=== PATIENT | male | born 1985 | race Caucasian/White ===

== ENCOUNTER 2016-09-17 15:00 | Emergency (ER) | payer MEDICAID, OTHER ==
[2016-09-17 15:46] VITALS: TEMP 98.1
--- NOTE | 2016-09-17 17:45 | C.PDOC ---
History Of Present Illness 30 y/o male presents to the ED complaining of intermittent epigastric and periumbilical abdominal pain "for months." He also reports decreased appetite and "vomiting sometimes." Patient notes that his symptoms are worse after he eats "greasey stuff" or "sweets." He also notes that he recently changed his appetite and he has not been eating as much [employer] takeout or meat which seems to have helped. Patient reports no pain at this time in the emergency department. He denies recent travel, fever, diarrhea, chest pain, shortness of breath, urinary symptoms, hematemesis, or any other complaints. Time Seen by Provider: 09/17/16 17:10 Chief Complaint (Nursing): GI Problem History Per: Patient History/Exam Limitations: no limitations Onset/Duration Of Symptoms: Days, Intermittent Episodes Current Symptoms Are (Timing): Still Present Location Of Pain/Discomfort: Epigastric, Periumbilical Radiation Of Pain To:: None Associated Symptoms: Vomiting Recent travel outside of the [place]: No Past Medical History Reviewed: Historical Data, Nursing Documentation, Vital Signs Vital Signs: Last Vital Signs Temp 98.1 F 09/17/16 15:45 Pulse 77 09/17/16 19:11 Resp 18 09/17/16 19:11 BP 118/80 09/17/16 19:11 Pulse Ox 98 09/17/16 19:11 - Medical History PMH: No Chronic Diseases Surgical History: No Surg Hx Family History: States: No Known Family Hx - Social History Hx Tobacco Use: No Hx Alcohol Use: No Hx Substance Use: No - Immunization History Hx Tetanus Toxoid Vaccination: No Hx Influenza Vaccination: No Hx Pneumococcal Vaccination: No Review Of Systems Except As Marked, All Systems Reviewed And Found Negative. Constitutional: Negative for: Fever Cardiovascular: Negative for: Chest Pain Respiratory: Negative for: Shortness of Breath Gastrointestinal: Positive for: Vomiting, Abdominal Pain. Negative for: Diarrhea, Hematemesis Genitourinary: Negative for: Dysuria, Hematuria Physical Exam - Physical Exam Appears: Non-toxic, No Acute Distress Skin: Normal Color, Warm, Dry Head: Atraumatic, Normacephalic Eye(s): bilateral: Normal Inspection, PERRL, EOMI Oral Mucosa: Moist Neck: Normal ROM Chest: Symmetrical Cardiovascular: Rhythm Regular, No Friction Rub, No Murmur Respiratory: Normal Breath Sounds, No Rales, No Rhonchi, No Wheezing Gastrointestinal/Abdominal: Normal Exam, Soft, No Tenderness, No Guarding, No Rebound, No Hernia Back: Normal Inspection, No CVA Tenderness Extremity: Normal ROM, No Swelling Neurological/Psych: Oriented x3, Normal Speech, Normal Cognition, Normal Motor, Normal Sensation Gait: Steady ED Course And Treatment - Laboratory Results Result Diagrams: 09/17/16 18:08 09/17/16 18:08 O2 Sat by Pulse Oximetry: 100 (ra) Pulse Ox Interpretation: Normal Medical Decision Making Medical Decision Making: Plan: * Blood Work * Urinalysis * X-Ray, Abdomen On re-exam, the patient has no pain. Abdomen is soft, non-tender and patient is tolerating PO well. Lungs are CTA, heart is RRR Follow up with the medical doctor within 1-2 days. Return if worsened. Disposition - Disposition Referrals: [facility] at [facility] [Outside] Disposition: HOME/ ROUTINE Disposition Time: 18:59 Condition: GOOD Additional Instructions: Follow up with the medical doctor within 1-2 days. Return if worsened. Prescriptions: Famotidine [Pepcid] 20 mg PO BID #20 tab Ondansetron ODT [Zofran ODT] 1 odt PO BID PRN #10 odt PRN Reason: Nausea/Vomiting Instructions: Acute Abdominal Pain (DC) - Clinical Impression Clinical Impression: Abdominal pain - PA / [employer] / Resident Statement MD/DO has reviewed & agrees with the documentation as recorded. - Scribe Statement The provider has reviewed the documentation as recorded by the Scribe (Moira Novoa) All medical record entries made by the Scribe were at my direction and personally dictated by me. I have reviewed the chart and agree that the record accurately reflects my personal performance of the history, physical exam, medical decision making, and the department course for this patient. I have also personally directed, reviewed, and agree with the discharge instructions and disposition.
[2016-09-17 18:26] LABS: CHLORIDE 94 mmol/L (98-107); POTASSIUM 3.5 mmol/L (3.6-5.2); SODIUM 138 mmol/L (132-148)
[2016-09-17 18:28] LABS: ALB/GLOB RATIO 1.4 (1.0-2.1); AST/SGOT 189 U/L (17-59); BILIRUBIN,TOTAL 1.2 mg/dL (0.2-1.3); CARBON DIOXIDE 30 mmol/L (22-30); GFR AFRICAN-AMERICAN > 60; TOTAL PROTEIN 7.3 g/dL (6.3-8.3)
[2016-09-17 18:29] LABS: ALKALINE PHOSPHATASE 178 U/L (38-126); ALT/SGPT 234 U/L (21-72); BLOOD UREA NITROGEN 9 mg/dL (9-20); CALCIUM 7.1 mg/dl (8.6-10.4); GLUCOSE,RANDOM 111 mg/dL (75-110)
[2016-09-17 18:31] LABS: RBC URINE 6 /hpf (0-3); URINE BACTERIA RARE (<OCC); URINE BILIRUBIN NEGATIVE (NEGATIVE); URINE BLOOD 1+ (NEGATIVE); URINE COLOR Straw (YELLOW); URINE GLUCOSE (UA) 1+ mg/dL (Normal); URINE KETONE NEGATIVE (NEGATIVE); URINE LEUKOCYTE ESTERASE NEG Leu/uL (Negative); URINE PROTEIN NEGATIVE (NEGATIVE); URINE UROBILINOGEN NORMAL mg/dL (0.2-1.0); WBC URINE 1 /hpf (0-5)
[2016-09-17 18:35] LABS: BASO # 0.1 K/uL (0.0-0.2); BASO % 0.8 % (0.0-2.0); EOS # 0.1 K/uL (0.0-0.7); EOS % 0.8 % (0.0-4.0); HEMATOCRIT 34.5 % (35.0-51.0); LYMPH # 1.2 K/uL (1.0-4.3); LYMPH % 15.6 % (20.0-40.0); MEAN CELL VOLUME 81.3 fL (80.0-94.0); MEAN CORPUSCULAR HEMOGLOBIN 26.6 pg (27.0-31.0); MEAN CORPUSCULAR HGB CONC 32.7 g/dL (33.0-37.0); MONO # 1.1 K/uL (0.0-0.8); MONO % 13.9 % (0.0-10.0); NRBC % 0.4 % (0.0-2.0); RED CELL DISTRIBUTION WIDTH 16.2 % (11.5-14.5)
[2016-09-17 19:12] VITALS: BP 118/80; PULSE 77; RESP 18
--- NOTE | 2016-09-18 11:41 | RAD ---
PROCEDURE: Radiographs of the chest and abdomen (obstructive series) HISTORY: abd pain COMPARISON: Chest x-ray performed 08/17/15 TECHNIQUE: AP radiograph of the chest, with upright and supine radiographs of the abdomen. FINDINGS: CHEST: The cardiomediastinal silhouette appears within normal limits of size. Interval resolution of right lower lobe opacity. No focal consolidation, significant pleural effusion, or definite pneumothorax identified.Please note that chest x-ray has limited sensitivity for the detection of pulmonary masses. ABDOMEN AND PELVIS: Nonobstructive bowel gas pattern. No definite free air. Moderate constipation. No acute osseous abnormality is detected. IMPRESSION: Interval resolution of right lower lobe opacity. Moderate constipation.
[2016-09-21 08:46] VITALS: O2SAT 100
== END 2016-09-17 19:12 | disposition home or self-care (01) ==
LOC: C.ER 15:00
DX: R10.13 Epigastric pain (principal); R10.33 Periumbilical pain

== ENCOUNTER 2016-09-22 11:00 | Emergency (ER) | payer OTHER ==
[2016-09-22] MEDS ORDERED: Sodium Chloride 0.9% 1,000 ML IV ONE (11:23)
--- NOTE | 2016-09-22 11:29 | C.PDOC ---
History Of Present Illness Patient is a 30 year old male who presents to the ER with a complaint of lower abdominal pain associated with vomiting and chills. Patient was seen on the for similar symptoms and returns to the ER due to worsening of symptoms. Patient believes he has a "parasite", reports seeing white "segments" in his stool along with blood. Denies fever and dysuria. Time Seen by Provider: 09/22/16 11:09 Chief Complaint (Nursing): Abdominal Pain History Per: Patient History/Exam Limitations: no limitations Onset/Duration Of Symptoms: Days Current Symptoms Are (Timing): Still Present Location Of Pain/Discomfort: Other (Lower abdominal) Associated Symptoms: Chills, Vomiting, Other (Blood and white segments in stool) . denies: Fever, Urinary Symptoms Past Medical History Reviewed: Historical Data, Nursing Documentation, Vital Signs Vital Signs: Last Vital Signs Temp 98.4 F 09/22/16 15:41 Pulse 83 09/22/16 15:41 Resp 20 09/22/16 15:41 BP 132/82 09/22/16 15:41 Pulse Ox 100 09/22/16 15:41 - Medical History PMH: No Chronic Diseases Surgical History: No Surg Hx Family History: States: Unknown Family Hx - Social History Hx Tobacco Use: No Hx Alcohol Use: No Hx Substance Use: No - Immunization History Hx Tetanus Toxoid Vaccination: No Hx Influenza Vaccination: No Hx Pneumococcal Vaccination: No Review Of Systems Constitutional: Positive for: Chills. Negative for: Fever Gastrointestinal: Positive for: Vomiting, Abdominal Pain, Other (Blood and white segments in stool) Genitourinary: Negative for: Dysuria Physical Exam - Physical Exam Appears: Non-toxic Skin: Warm, Dry, No Pale, No Rash Head: Atraumatic, Normacephalic Eye(s): bilateral: Normal Inspection, PERRL, EOMI Oral Mucosa: Moist Throat: No Erythema, No Exudate Neck: Normal ROM, Supple Chest: Symmetrical, No Tenderness Cardiovascular: Rhythm Regular, No Friction Rub, No Murmur Respiratory: Normal Breath Sounds, No Rales, No Rhonchi, No Wheezing Gastrointestinal/Abdominal: Bowel Sounds (active), Soft, No Tenderness Extremity: Normal ROM, No Swelling Neurological/Psych: Oriented x3, Normal Speech, Normal Cognition, Normal Motor, Normal Sensation Gait: Steady ED Course And Treatment - Laboratory Results Result Diagrams: 09/22/16 11:51 09/22/16 11:51 O2 Sat by Pulse Oximetry: 100 (Room air) Pulse Ox Interpretation: Normal Progress Note: Blood work, urinalysis, and CT of the abd/pelvis with IV contrast ordered. Morphine IVP, IV fluids, toradol IVP, and zofran IVP administered. Medical Decision Making Medical Decision Making: Patient was seen on the for similar symptoms, lab results were negative and abdomen was non tender at the time. Will work up today due to persistent pain. Patient was instructed to give a stool sample but was unable to have a bowel movement here. On re-exam, the patient reports improvement of symptoms. Lungs are CTA, heart is RRR, Abdomen is soft, non-tender and tolerating PO well. ambulatory in the ED with steady gait. Follow up with the medical doctor within 1-2 days. return if worsened. Disposition - Disposition Referrals: [facility] at [facility] [Outside] Disposition: HOME/ ROUTINE Disposition Time: 15:06 Condition: GOOD Additional Instructions: Follow up with the medical doctor within 1-2 days. return if worsened. Prescriptions: Ciprofloxacin [Cipro] 1 tab PO BID #14 tab metroNIDAZOLE [Flagyl] 500 mg PO BID #14 tab Polyethylene Glycol 3350 [Miralax] 17 gm PO TID #200 ml Ibuprofen [Motrin] 600 mg PO TID #21 tab Instructions: Colitis (ED) - Clinical Impression Clinical Impression: Abdominal pain, Colitis - Scribe Statement The provider has reviewed the documentation as recorded by the Scribeagle Velasquez All medical record entries made by the Scribe were at my direction and personally dictated by me. I have reviewed the chart and agree that the record accurately reflects my personal performance of the history, physical exam, medical decision making, and the department course for this patient. I have also personally directed, reviewed, and agree with the discharge instructions and disposition.
[2016-09-22] MEDS ORDERED: Sodium Chloride 0.9% 1,000 ML ONE (11:53)
[2016-09-22 11:56] LABS: BASO % 0.6 % (0.0-2.0); EOS % 0.1 % (0.0-4.0); HEMATOCRIT 32.7 % (35.0-51.0); LYMPH # 0.8 K/uL (1.0-4.3); LYMPH % 12.7 % (20.0-40.0); MEAN CORPUSCULAR HEMOGLOBIN 26.4 pg (27.0-31.0); MEAN CORPUSCULAR HGB CONC 32.2 g/dL (33.0-37.0); MEAN PLATELET VOLUME 8.2 fL (7.2-11.7); MONO # 0.6 K/uL (0.0-0.8); MONO % 9.1 % (0.0-10.0); NRBC % 0.3 % (0.0-2.0); RED CELL DISTRIBUTION WIDTH 16.1 % (11.5-14.5); WHITE BLOOD COUNT 6.5 K/uL (4.8-10.8)
[2016-09-22 12:02] LABS: CHLORIDE 93 mmol/L (98-107); POTASSIUM 3.9 mmol/L (3.6-5.2); SODIUM 133 mmol/L (132-148)
[2016-09-22 12:04] LABS: ALB/GLOB RATIO 1.4 (1.0-2.1); AST/SGOT 135 U/L (17-59); BILIRUBIN,TOTAL 1.9 mg/dL (0.2-1.3); CARBON DIOXIDE 28 mmol/L (22-30); GFR AFRICAN-AMERICAN > 60; TOTAL PROTEIN 7.1 g/dL (6.3-8.3)
[2016-09-22 12:05] LABS: ALKALINE PHOSPHATASE 149 U/L (38-126); ALT/SGPT 157 U/L (21-72); BLOOD UREA NITROGEN 4 mg/dL (9-20); CALCIUM 6.6 mg/dl (8.6-10.4); GLUCOSE,RANDOM 99 mg/dL (75-110); URINE BILIRUBIN NEGATIVE (NEGATIVE); URINE BLOOD 1+ (NEGATIVE); URINE COLOR Yellow (YELLOW); URINE GLUCOSE (UA) NORMAL (Normal); URINE KETONE NEGATIVE (NEGATIVE); URINE LEUKOCYTE ESTERASE NEG Leu/uL (Negative); URINE PROTEIN NEGATIVE (NEGATIVE); URINE UROBILINOGEN NORMAL mg/dL (0.2-1.0); WBC URINE 2 /hpf (0-5)
[2016-09-22 12:41] LABS: RBC URINE 3 /hpf (0-3)
[2016-09-22] MEDS ORDERED: Iodixanol 320 MG/ML 100 ML BOTTLE IV ONE (13:10)
--- NOTE | 2016-09-22 14:19 | CT ---
PROCEDURE: CT Abdomen and Pelvis . HISTORY: LLQ abd pain COMPARISON: None. TECHNIQUE: Contiguous axial images of the abdomen and following intravenous injection of approximately 100 cc Visipaque 320 contrast material. . Coronal and Sagittal reformats generated. Radiation dose: Total exam DLP = 263.77 mGy-cm. This CT exam was performed using one or more of the following dose reduction techniques: Automated exposure control, adjustment of the mA and/or kV according to patient size, and/or use of iterative reconstruction technique. FINDINGS: LOWER THORAX: Unremarkable. LIVER: Liver is upper limits of normal/ borderline enlarged measuring nearly 19 cm in CC dimension. Mild diffuse fatty hepatic infiltration. GALLBLADDER AND BILE DUCTS: Unremarkable. PANCREAS: Unremarkable. No mass. No ductal dilatation. SPLEEN: Unremarkable. No splenomegaly. ADRENALS: Unremarkable. KIDNEYS AND URETERS: Unremarkable. No stone or hydronephrosis. BLADDER: Urinary bladder is incompletely distended which may account for thick-walled appearance. Cystitis not excluded REPRODUCTIVE: Minor chronic appearing APPENDIX: Unremarkable. BOWEL: Evaluation of the bowel is somewhat limited due to the lack of oral contrast material. Stomach is incompletely distended which presumably accounts for thick-walled appearance. Gastritis not excluded. Visualized loops of small bowel exhibit normal contour and caliber. No evidence of acute mechanical small bowel obstruction. Large amount of stool seen within the ascending and proximal transverse colon consistent with fecal retention/constipation. There also appears to be some fecalization of contents within the distal small bowel/terminal ileum as well. The descending and sigmoid colon collapse which may in part account for wall thickening. The possibility of a mild inflammatory process of the descending and sigmoid colon cannot be excluded on this study. Clinical correlation recommended PERITONEUM: Unremarkable. No fluid collection. No free air. LYMPH NODES: Unremarkable. No enlarged lymph nodes. VASCULATURE: Unremarkable. No aortic aneurysm. BONES: Minor chronic anterior stature loss of the T11 and to a lesser degree T10 segments. OTHER FINDINGS: None. IMPRESSION: Large amount of stool seen within the ascending and proximal transverse colon consistent with fecal retention/constipation. There also appears to be some fecalization of contents within the distal small bowel/terminal ileum as well. The descending and sigmoid colon collapse which may in part account for wall thickening. The possibility of a mild inflammatory process of the descending and sigmoid colon cannot be excluded on this study. Clinical correlation recommended Borderline/mild hepatomegaly with fatty infiltration.
[2016-09-22 14:46] VITALS: O2SAT 100
[2016-09-22 15:42] VITALS: BP 132/82; PULSE 83; RESP 20; TEMP 98.4
== END 2016-09-22 15:42 | disposition home or self-care (01) ==
LOC: C.ER 11:00
DX: K52.9 Noninfective gastroenteritis and colitis, unspecified (principal)
CPT/HCPCS: 74177; 80053; 81001; 83690; 85025; 96361; 96374; 96375; 99285; J1885; J2270; J2405; J7040; Q9967

== ENCOUNTER 2016-09-24 18:09 | Emergency (ER) | payer OTHER ==
[2016-09-24 18:40] VITALS: TEMP 98
--- NOTE | 2016-09-24 20:13 | C.PDOC ---
History Of Present Illness Pt states that he saw tapeworms in his stool. Time Seen by Provider: 09/24/16 19:39 Chief Complaint (Nursing): GI Problem History Per: Patient Onset/Duration Of Symptoms: Days Current Symptoms Are (Timing): Still Present Severity: Moderate Quality Of Discomfort: Unable To Describe Alleviating Factors: None Additional History Per: Prior Records Past Medical History Reviewed: Historical Data, Nursing Documentation, Vital Signs Vital Signs: Last Vital Signs Temp 98 F 09/24/16 18:36 Pulse 99 H 09/24/16 18:36 Resp 17 09/24/16 18:36 BP 120/80 09/24/16 18:36 Pulse Ox 100 09/24/16 18:36 - Medical History PMH: No Chronic Diseases Family History: States: Unknown Family Hx - Social History Hx Tobacco Use: No Hx Alcohol Use: No Hx Substance Use: No - Immunization History Hx Tetanus Toxoid Vaccination: No Hx Influenza Vaccination: No Hx Pneumococcal Vaccination: No Review Of Systems Except As Marked, All Systems Reviewed And Found Negative. Constitutional: Negative for: Fever Cardiovascular: Negative for: Chest Pain Respiratory: Negative for: Shortness of Breath Gastrointestinal: Negative for: Vomiting Musculoskeletal: Negative for: Neck Pain Neurological: Negative for: Weakness, Numbness, Seizures, Altered Mental Status Physical Exam - Physical Exam Appears: Non-toxic, No Acute Distress Skin: Normal Color, Warm, Dry Head: Atraumatic, Normacephalic Eye(s): bilateral: PERRL, EOMI Neck: Normal ROM, Supple Cardiovascular: Rhythm Regular Respiratory: Normal Breath Sounds, No Accessory Muscle Use Gastrointestinal/Abdominal: Soft, No Tenderness Extremity: Normal ROM Neurological/Psych: Oriented x3, Normal Motor, Normal Sensation ED Course And Treatment O2 Sat by Pulse Oximetry: 100 Pulse Ox Interpretation: Normal Disposition Counseled Patient/Family Regarding: Diagnosis, Need For Followup, Rx Given - Disposition Referrals: [facility] at [facility] [Outside] Disposition: HOME/ ROUTINE Disposition Time: 20:13 Condition: STABLE Additional Instructions: Follow up in the clinic for further evaluation and treatment. Return to the ER if you develop worsening of symptoms or if you have any other concerns. Prescriptions: Praziquantel [Biltricide] 600 mg PO ONCE #1 tab Instructions: Praziquantel (By mouth) - Clinical Impression Clinical Impression: Intestinal helminthiasis
[2016-09-24 20:20] VITALS: BP 132/78; PULSE 84; RESP 16; O2SAT 98
== END 2016-09-24 20:19 | disposition home or self-care (01) ==
LOC: C.ER 18:09
DX: B82.0 Intestinal helminthiasis, unspecified (principal)

== ENCOUNTER 2016-10-01 11:23 | Emergency (ER) | payer SELFPAY ==
--- NOTE | 2016-10-01 13:42 | C.PDOC ---
History Of Present Illness Patient left without being seen/evaluated by me. Time Seen by Provider: 10/01/16 11:30 Chief Complaint (Nursing): Abdominal Pain Past Medical History Reviewed: Historical Data, Nursing Documentation, Vital Signs - Medical History PMH: No Chronic Diseases Surgical History: No Surg Hx Family History: States: Unknown Family Hx - Social History Hx Tobacco Use: No Hx Alcohol Use: No Hx Substance Use: No - Immunization History Hx Tetanus Toxoid Vaccination: No Hx Influenza Vaccination: No Hx Pneumococcal Vaccination: No Disposition - Disposition Disposition: LEFT W/O BEING SEEN - ER ONLY Disposition Time: 11:40 Condition: STABLE - Clinical Impression Clinical Impression: Patient left without being seen - Scribe Statement The provider has reviewed the documentation as recorded by the Scribe (Naomi Metz) Provider Attestation: All medical record entries made by the Scribe were at my direction and personally dictated by me. I have reviewed the chart and agree that the record accurately reflects my personal performance of the history, physical exam, medical decision making, and the department course for this patient. I have also personally directed, reviewed, and agree with the discharge instructions and disposition.
== END 2016-10-01 11:30 | disposition left against medical advice (07) ==
LOC: C.ER 11:23
DX: R10.9 Unspecified abdominal pain (principal); Z02.9 Encounter for administrative examinations, unspecified